=== PATIENT | female | born 1995 | race Caucasian/White ===

== ENCOUNTER 2024-09-22 08:55 | Emergency (ER) | payer OTHER ==
[2024-09-22 09:01] VITALS: BMI 30.4
[2024-09-22] MEDS ORDERED: ACETAMINOPHEN 500 MG TABLET (FP) ONE (09:53)
[2024-09-22] MEDS: ACETAMINOPHEN 500 MG TABLET (FP) PO ONE (09:55)
[2024-09-22 09:57] LABS: EPI CELLS >36 /uL (0-25.1); HYALINE CASTS 1 /uL (0-3.1); URINE APPEARANCE CLOUDY; URINE BACTERIA 1106 /uL (0-1359); URINE BILIRUBIN NEGATIVE (NEGATIVE); URINE COLOR YELLOW; URINE GLUCOSE (UA) NEGATIVE (NEGATIVE); URINE KETONE NEGATIVE (NEGATIVE); URINE LEUK ESTERASE 2+ (NEGATIVE); URINE NITRITE NEGATIVE (NEGATIVE); URINE PROTEIN TRACE (NEGATIVE); URINE RBC 336 /uL (0-23.9); URINE UROBILINOGEN 0.2 mg/dL (0.2-1.0); URINE WBC 176 /uL (0-25.8)
[2024-09-22 10:01] LABS: ABSOLUTE IMMATURE GRANULOCYTES 0.02 x10^3/uL (0.0-0.031); BASOPHILS # 0.03 x10^3/uL (0.01-0.08); EOSINOPHIL % 0.8 % (0.7-5.8); EOSINOPHILS # 0.05 x10^3/uL (0.04-0.36); HEMATOCRIT 42.3 % (34.1-44.9); HEMOGLOBIN 13.5 g/dL (11.2-15.7); MCHC 31.9 g/dl (32.2-35.5); MEAN CELL VOLUME 80.3 fl (79.4-94.8); MEAN PLT VOLUME 9.6 fl (9.4-12.3); MONOCYTE # 0.38 x10^3/uL (0.24-0.86); MONOCYTE % 5.7 % (4.7-12.5); PLATELET COUNT 246 x10^3/uL (182-369); RDW 14.3 % (12.1-16.5)
[2024-09-22 11:19] LABS: HIV INTERPRETATION NEGATIVE (NEGATIVE)
[2024-09-22 11:20] LABS: HCV DIAGNOSTIC IN-HOUSE W/RFLX NON-REACTIVE (NONREACTIVE)
[2024-09-22 13:21] VITALS: BP 113/62; PULSE 86; RESP 16; TEMP 98
== END 2024-09-22 13:59 | disposition home or self-care (01) ==
LOC: JER 08:55
DX: O23.41 Unspecified infection of urinary tract in pregnancy, first trimester (principal); O20.9 Hemorrhage in early pregnancy, unspecified; O26.891 Other specified pregnancy related conditions, first trimester; R10.84 Generalized abdominal pain; Z3A.09 9 weeks gestation of pregnancy
CPT/HCPCS: 36415; 76817-TC; 81003; 84702; 85025; 86803; 86850; 86900; 86901; 87086; 87389; 99284-25